=== PATIENT | male | born 1985 | race Caucasian/White ===

== ENCOUNTER 2019-03-25 15:31 | Emergency (ER) | payer SELFPAY ==
[~2019-03-25] VITALS: Ht 165.1 cm; Wt 68.9 kg
[2019-03-25 15:38] VITALS: Ht 165.1 cm; Wt 68.9 kg
[2019-03-25 17:47] VITALS: BP 115/71
== END 2019-03-25 17:47 | disposition home or self-care (01) ==
LOC: ED 15:31
DX: S61.412A Laceration without foreign body of left hand, initial encounter (principal); W26.0XXA Contact with knife, initial encounter; Y93.89 Activity, other specified; Y92.89 Other specified places as the place of occurrence of the external cause; Y99.8 Other external cause status
CPT/HCPCS: J2001